=== PATIENT | male | born 1990 | race Caucasian/White ===

== ENCOUNTER → 2024-02-21 | Outpatient (REF) | payer BC ==
[2024-02-21 18:16] LABS: APPEARANCE, URINE CLEAR (CLEAR); BACTERIA, URINE AUTO NEGATIVE (NEGATIVE); BILIRUBIN, URINE AUTO NEGATIVE (NEGATIVE); BLOOD, URINE BLOOD NEGATIVE (NEGATIVE); COLOR, URINE YELLOW (YELLOW); GLUCOSE, URINE (UA) AUTO NEGATIVE (NEGATIVE); KETONE, URINE AUTO NEGATIVE (NEGATIVE); LEUKOCYTE ESTERASE, URINE AUTO NEGATIVE (NEGATIVE); MUCUS, URINE SMALL (NEGATIVE); NITRITE, URINE AUTO NEGATIVE (NEGATIVE); PROTEIN, URINE AUTO NEGATIVE (NEGATIVE); RBC, URINE AUTO 0 /HPF (0-3); SPECIFIC GRAVITY URINE AUTO 1.015 (1.002-1.035); SQUAMOUS EPITHELIAL CELL UR AU 0 /HPF (0-6); UROBILINOGEN, URINE AUTO 0.2 mg/dL (0.0-2.0); WBC, URINE AUTO 0 /HPF (0-3)
== END ==
LOC: M SMT 17:15
PROVIDERS: ATTEND Urology
DX: N50.3 Cyst of epididymis (principal)

== ENCOUNTER → 2024-04-28 | Day surgery (SDC) | payer BC ==
[~2024-04-28] VITALS: Ht 180.3 cm; Wt 72.6 kg
[~2024-04-28] MED LIST: ceFAZolin SOD 2 GM IV ONCE IV ONE
== END | disposition home or self-care (01) ==
LOC: M SDC 09:57
PROVIDERS: ATTEND Urology
DX: N36.8 Other specified disorders of urethra (principal); Z53.8 Procedure and treatment not carried out for other reasons

== ENCOUNTER 2024-05-05 10:21 | Day surgery (SDC) | payer BC ==
[~2024-05-05] VITALS: Ht 180.3 cm; Wt 74.4 kg
[2024-05-05] MEDS ORDERED: LR 1,000 ML IV SCH ×2 (10:45→12:25)
[2024-05-05] MEDS ORDERED: propofoL 200 MG/20 ML VIAL As Ordered ONE (11:24)
[2024-05-05] MEDS ORDERED: fentaNYL 100 MCG/2 ML INJECTION As Ordered ONE (11:25)
[2024-05-05] MEDS ORDERED: MIDAZOLAM INJ 2MG/2ML VIAL As Ordered ONE (11:25)
[2024-05-05] MEDS ORDERED: LIDOCAINE 2% 100MG/5ML SDV (FOR ANES.) As Ordered ONE (11:51)
[2024-05-05] MEDS: ceFAZolin SOD 2 GM IV ONCE IV ONE (12:02)
[2024-05-05] MEDS ORDERED: ONDANSETRON 4MG 2ML VIAL As Ordered ONE (12:08)
[2024-05-05] MEDS ORDERED: KETOROLAC 30 MG/ML 1ML VIAL As Ordered ONE (12:09)
[2024-05-05] MEDS: ISOVUE-300 61% 100ML VIAL As Ordered ONE (12:11)
[2024-05-05] MEDS: LIDOCAINE 2% 5ML JELLY UROJET As Ordered ONE (12:18)
[2024-05-05] MEDS ORDERED: ONDANSETRON 4MG 2ML VIAL IV PRN (12:25)
[2024-05-05] MEDS ORDERED: oxyCODONE 5MG TAB PO PRN (12:25)
[2024-05-05] MEDS ORDERED: HYDROMORPHONE HCL 0.5 MG/ 0.5 ML SYRINGE IV PRN (12:25)
[2024-05-05] MEDS ORDERED: fentaNYL 100 MCG/2 ML INJECTION IV PRN (12:25)
[2024-05-05 13:15] VITALS: BP 132/65
[2024-05-05 13:33] VITALS: TEMP 97; O2SAT 97
== END 2024-05-05 13:35 | disposition home or self-care (01) ==
LOC: M SDC 10:21
PROVIDERS: ATTEND Urology
DX: N36.8 Other specified disorders of urethra (principal); J45.909 Unspecified asthma, uncomplicated
CPT/HCPCS: 52000; 76000; C1769; J0690; J1100; J1885; J2250; J2405; J3010; Q9967